=== PATIENT | male | born 1985 | race American Indian/Alaskan Native ===

== ENCOUNTER 2016-09-16 23:23 | Emergency (ER) | payer MEDICAID ==
[2016-09-16 23:34] VITALS: BMI 28.3
--- NOTE | 2016-09-16 23:34 | ED PDOC ---
Arrival/HPI - General Time Seen by Provider: 09/16/16 23:25 Historian: Patient - History of Present Illness Narrative History of Present Illness (Text): 09/16/16 23:31 31 y/o male, pmh including bronchitis, nkda, c/o throat pain and bodyache started this morning. aching pain, aggravated by swallowing, no drooling, no night sweat, no dizziness, no coughing, no other medical or psychological complaints. Past Medical History - Provider Review Nursing Documentation Reviewed: Yes Family/Social History - Physician Review Nursing Documentation Reviewed: Yes Family/Social History: Unknown Family HX Allergies/Home Meds Allergies/Adverse Reactions: Allergies No Known Allergies Allergy (Verified 09/16/16 23:32) Review of Systems - Review of Systems Constitutional: Fevers. absent: Fatigue Eyes: absent: Vision Changes ENT: Sore Throat. absent: Hearing Changes Respiratory: absent: SOB, Cough Cardiovascular: absent: Chest Pain Gastrointestinal: absent: Abdominal Pain, Nausea, Vomiting Skin: absent: Rash, Pruritis Neurological: absent: Headache, Dizziness, Focal Weakness Physical Exam Vital Signs Reviewed: Yes Vital Signs Temp Pulse Resp BP Pulse Ox 09/16/16 23:46 102.7 F H 09/16/16 23:34 102.8 F H 88 16 111/54 L 99 Temperature: Febrile Blood Pressure: Normal Pulse: Regular Respiratory Rate: Normal Appearance: Positive for: Well-Appearing, Non-Toxic, Comfortable Pain Distress: Moderate Mental Status: Positive for: Alert and Oriented X 3 - Systems Exam Head: Present: Atraumatic, Normocephalic Pupils: Present: PERRL Extroacular Muscles: Present: EOMI Conjunctiva: Present: Normal Ears: Present: NORMAL TM, Normal Canal. No: Erythema Mouth: Present: Moist Mucous Membranes Pharnyx: Present: ERYTHEMA, EXUDATE (lt. tonsil), TONSILS ENLARGED (lt. tonsillitis). No: Peritonsilar Swelling, Uvular Deviation, Muffled/Hoarse Voice , Strider, Soft Palate/Uvular Edema Neck: Present: Normal Range of Motion, Lymphadenopathy (lt. anterior cervical). No: Meningeal Signs, MIDLINE TENDERNESS, Paraspinal Tenderness Respiratory/Chest: Present: Clear to Auscultation, Good Air Exchange. No: Respiratory Distress, Accessory Muscle Use, Wheezes, Decreased Breath Sounds, Rales, Retracting, Rhonchi, Tachypneic, Tender to Palpation, Other Cardiovascular: Present: Regular Rate and Rhythm, Normal S1, S2. No: Murmurs Abdomen: Present: Normal Bowel Sounds. No: Tenderness, Distention, Peritoneal Signs, Rebound, Guarding Back: Present: Normal Inspection Upper Extremity: Present: Normal Inspection. No: Cyanosis, Edema Lower Extremity: Present: Normal Inspection. No: Edema Neurological: Present: GCS=15, Speech Normal, Motor Func Grossly Intact, Gait Normal, Memory Normal Skin: Present: Warm, Dry, Normal Color. No: Rashes Lymphatic: Present: Cervical Adenopathy Psychiatric: Present: Alert, Oriented x 3, Normal Insight, Normal Concentration Medical Decision Making ED Course and Treatment: 09/16/16 23:34 -rapid strept -decadron/toradol/tylenol 09/16/16 23:58 -Positive rapid strept noted. -Augmentin po ordered. Discharge home with augmentin, ibuprofen, salt water gargling, soft food diet, stay hydrated, bed rest, follow up with your own pmd and ENT within 2 days, return to the ER for any new or worsening signs or symptoms. 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 Disposition/Present on Arrival - Present on Arrival Any Indicators Present on Arrival: No History of DVT/PE: No History of Uncontrolled Diabetes: No Urinary Catheter: No History of Decub. Ulcer: No - Disposition Have Diagnosis and Disposition been Completed?: Yes Diagnosis: Tonsillitis Disposition Time: 23:34 Patient Plan: Discharge Patient Problems: Current Active Problems Problem Status Onset Tonsillitis Acute Condition: IMPROVED Additional Instructions: Discharge home with augmentin, ibuprofen, salt water gargling, soft food diet, stay hydrated, bed rest, follow up with your own pmd and ENT within 2 days, return to the ER for any new or worsening signs or symptoms. Prescriptions: Amoxicillin/Clavulanate [Augmentin 875 MG-125 MG] 1 tab PO BID #20 tab Ibuprofen [Motrin Tab] 600 mg PO QID PRN #30 tab PRN Reason: Other Referrals: Oswaldo Mendiola DO [Staff Provider] - Follow up with primary [facility] at [facility] – [place], [place] [Outside] - Follow up with primary Forms: WORK NOTE
[2016-09-16 23:35] VITALS: RESP 16
[2016-09-17] MEDS ORDERED: Amoxicillin-Clav 875-125 mg Tab PO STA (00:16)
[2016-09-17 00:41] VITALS: BP 114/59; PULSE 85; TEMP 99.9; O2SAT 97
== END 2016-09-17 01:02 | disposition home or self-care (01) ==
LOC: ED 23:23
DX: J03.90 Acute tonsillitis, unspecified (principal)
CPT/HCPCS: 87430; 96372; 99282; J1100; J1885